=== PATIENT | female | born 1975 | race Caucasian/White ===

== ENCOUNTER → 2020-12-10 | Outpatient (CLI) | payer OTHER ==
[~2020-12-10] MED LIST: ABILIFY5 MG PO; ADULT LOW DOSE81 MG PO; AMLODIPINE BESYL5 MG PO; ATORVASTATIN CA80 MG PO; BASAGLAR K100 UNIT/1 SQ; BIOTIN PO; BUMETANIDE1 MG PO; CLONIDINE HCL0.2 MG PO; CYCLOBENZAPRINE10 MG PO; CYMBALTA60 MG PO; DICLOFENAC; DITROPAN 5 MG TA5 MG PO; DOCUSATE SODIU250 MG PO; ESOMEPRAZOLE MA40 MG PO; EVENING PRIMR1000 MG PO; FENOFIBRATE145 MG PO; FIBER0.52 GM PO; GABAPENTIN800 MG PO; HYDROCODON-ACE1 EAC6 PO; HYDROCODONE-AC1 EACH PO; IBUPROFEN600 MG PO; LISINOPRIL40 MG PO; METOPROLOL SUC100 MG PO; MONTELUKAST SOD10 MG PO; PROAIR DIGIHAL90 MCG INH; SPIRONOLACTONE50 MG PO; STOOL SOFTENER100 MG PO; TOPAMAX50 MG PO; VENTOLIN INH; VISTARIL 25 MG25 MG PO; VITAMIN D21250 MCG PO
[2020-12-10 09:21] LABS: HEMOGLOBIN 11.5 gm/dl (12.3-15.3); RED BLOOD COUNT 3.68 M/UL (4.00-5.10); WHITE BLOOD COUNT 9.1 K/UL (4.5-11.0)
== END ==
LOC: OPSV2 08:12
PROVIDERS: Obstetrics & Gynecology
DX: Z01.812 Encounter for preprocedural laboratory examination (principal); R10.2 Pelvic and perineal pain
CPT/HCPCS: 36415; 80053; 81001; 85025

== ENCOUNTER → 2020-12-15 | Day surgery (SDC) | payer OTHER | END | disposition home or self-care (01) | LOC: OR 07:30 | DX: T85.9XXA Unspecified complication of internal prosthetic device, implant and graft, initial encounter (principal); N94.10 Unspecified dyspareunia; R10.2 Pelvic and perineal pain; I25.10 Atherosclerotic heart disease of native coronary artery without angina pectoris; I10 Essential (primary) hypertension; I25.2 Old myocardial infarction; E11.9 Type 2 diabetes mellitus without complications; E07.9 Disorder of thyroid, unspecified; J44.9 Chronic obstructive pulmonary disease, unspecified; E78.5 Hyperlipidemia, unspecified; E66.01 Morbid (severe) obesity due to excess calories; K21.9 Gastro-esophageal reflux disease without esophagitis; F17.210 Nicotine dependence, cigarettes, uncomplicated; F41.9 Anxiety disorder, unspecified; Z68.41 Body mass index [BMI] 40.0-44.9, adult; Z95.5 Presence of coronary angioplasty implant and graft; Z88.0 Allergy status to penicillin; Z88.5 Allergy status to narcotic agent; Z88.2 Allergy status to sulfonamides; Z79.4 Long term (current) use of insulin; Z79.899 Other long term (current) drug therapy | CPT/HCPCS: 82962; 93005; 94664; C1769; J1100; J1170; J1580; J1885; J2001; J2250; J2405; J2704; J2710; J3010; J7030; J7120 ==

== ENCOUNTER 2021-03-16 13:31 | Inpatient (IN) | payer OTHER ==
[~2021-03-16] VITALS: Ht 170.2 cm; Wt 110.2 kg
[2021-03-17] LABS: HEMOGLOBIN 9.3 gm/dl (12.3-15.3); RED BLOOD COUNT 2.95 M/UL (4.00-5.10)
[2021-03-18 08:14] LABS: VITAMIN D, 25-HYDROXY 15.3 ng/mL (30.0-100.0)
[2021-03-18 08:23] LABS: HEMOGLOBIN 9.3 gm/dl (12.3-15.3); RED BLOOD COUNT 3.02 M/UL (4.00-5.10); WHITE BLOOD COUNT 7.4 K/UL (4.5-11.0)
[2021-03-22 04:40] LABS: HEMOGLOBIN 8.4 gm/dl (12.3-15.3); RED BLOOD COUNT 2.65 M/UL (4.00-5.10); WHITE BLOOD COUNT 10.8 K/UL (4.5-11.0)
[2021-03-23 06:27] LABS: HEMOGLOBIN 8.6 gm/dl (12.3-15.3); RED BLOOD COUNT 2.68 M/UL (4.00-5.10)
[2021-03-23 07:07] LABS: WHITE BLOOD COUNT 7.7 K/UL (4.5-11.0)
[2021-03-23 08:14] LABS: ANTISTREPTOLYSIN O AB 21.6 IU/mL (0.0-200.0); COMPLEMENT C3, SERUM 95 mg/dL (82-167); COMPLEMENT C4, SERUM 12 mg/dL (12-38); HBSAG SCREEN Negative (Negative); HEP B CORE AB, TOT Negative (Negative); HEP C VIRUS AB <0.1 (0.0-0.9)
[2021-03-23 12:14] LABS: ANTI-DSDNA ANTIBODIES <1 IU/mL (0-9)
[2021-03-23 16:14] LABS: A/G RATIO 1.6 (0.7-1.7); ALBUMIN 3.3 g/dL (2.9-4.4); ALPHA-1-GLOBULIN 0.2 g/dL (0.0-0.4); ALPHA-2-GLOBULIN 0.8 g/dL (0.4-1.0); ATYPICAL PANCA <1:20 titer (Neg:<1:20); BETA GLOBULIN 0.7 g/dL (0.7-1.3); CYTOPLASMIC (C-ANCA) <1:20 titer (Neg:<1:20); GAMMA GLOBULIN 0.5 g/dL (0.4-1.8); GLOBULIN, TOTAL 2.2 g/dL (2.2-3.9); IMMUNOGLOBULIN A, QN, SERUM 251 mg/dL (87-352); IMMUNOGLOBULIN G, QN, SERUM 419 mg/dL (586-1602); IMMUNOGLOBULIN M, QN, SERUM 67 mg/dL (26-217); M-SPIKE Not Observed g/dL (Not Observed); PERINUCLEAR (P-ANCA) <1:20 titer (Neg:<1:20); PROTEIN, TOTAL, SERUM 5.5 g/dL (6.0-8.5)
--- NOTE | 2021-03-23 17:49 | NUR ---
PT WENT DOWN TO DIALYSIS NOTED
--- NOTE | 2021-03-24 01:11 | NUR ---
03/23/2021 @ 20:50 - Patient arrived back from dialysis at this time. Dialysis nurse reported that 2L were removed from patient.
[2021-03-24 07:40] LABS: HEMOGLOBIN 7.8 gm/dl (12.3-15.3); RED BLOOD COUNT 2.53 M/UL (4.00-5.10); WHITE BLOOD COUNT 7.1 K/UL (4.5-11.0)
[2021-03-24] MEDS ORDERED: CALCIUM ACETAT667 M1 PO (11:59)
== END 2021-03-24 13:40 | disposition home or self-care (01) | DRG 674 ==
LOC: MED SURG 4 18:09
PROVIDERS: Hospitalist; Internal Medicine; Internal Medicine Nephrology; Surgery; ADMIT Internal Medicine
PROC: 02HV33Z Insertion of Infusion Device into Superior Vena Cava, Percutaneous Approach (ICD-10-PCS; 2021-03-21)
PROC: B5181ZA Fluoroscopy of Superior Vena Cava using Low Osmolar Contrast, Guidance (ICD-10-PCS; 2021-03-21)
PROC: B548ZZA Ultrasonography of Superior Vena Cava, Guidance (ICD-10-PCS; 2021-03-21)
PROC: 0JH63XZ Insertion of Tunneled Vascular Access Device into Chest Subcutaneous Tissue and Fascia, Percutaneous Approach (ICD-10-PCS; principal; 2021-03-21 09:45)
PROC: 5A1D70Z Performance of Urinary Filtration, Intermittent, Less than 6 Hours Per Day (ICD-10-PCS; 2021-03-22)
PROC: 5A1D70Z Performance of Urinary Filtration, Intermittent, Less than 6 Hours Per Day (ICD-10-PCS; 2021-03-23)
PROC: 5A1D70Z Performance of Urinary Filtration, Intermittent, Less than 6 Hours Per Day (ICD-10-PCS; 2021-03-24)
DX: N17.9 Acute kidney failure, unspecified (principal); J96.11 Chronic respiratory failure with hypoxia; E87.2 Acidosis; I50.32 Chronic diastolic (congestive) heart failure; I13.0 Hypertensive heart and chronic kidney disease with heart failure and stage 1 through stage 4 chronic kidney disease, or unspecified chronic kidney disease; Z20.822 Contact with and (suspected) exposure to COVID-19; E87.5 Hyperkalemia; E11.22 Type 2 diabetes mellitus with diabetic chronic kidney disease; J44.9 Chronic obstructive pulmonary disease, unspecified; F41.9 Anxiety disorder, unspecified; F17.210 Nicotine dependence, cigarettes, uncomplicated; E11.40 Type 2 diabetes mellitus with diabetic neuropathy, unspecified; E11.21 Type 2 diabetes mellitus with diabetic nephropathy; D63.1 Anemia in chronic kidney disease; E66.01 Morbid (severe) obesity due to excess calories; R51.9 Headache, unspecified; I25.10 Atherosclerotic heart disease of native coronary artery without angina pectoris; E11.649 Type 2 diabetes mellitus with hypoglycemia without coma; R80.9 Proteinuria, unspecified; E78.5 Hyperlipidemia, unspecified; N18.4 Chronic kidney disease, stage 4 (severe); Z99.2 Dependence on renal dialysis; Z99.81 Dependence on supplemental oxygen; Z79.01 Long term (current) use of anticoagulants; Z79.82 Long term (current) use of aspirin; Z79.4 Long term (current) use of insulin; Z95.5 Presence of coronary angioplasty implant and graft; Z90.49 Acquired absence of other specified parts of digestive tract; Z83.3 Family history of diabetes mellitus; Z80.9 Family history of malignant neoplasm, unspecified; Z87.59 Personal history of other complications of pregnancy, childbirth and the puerperium; Z68.38 Body mass index [BMI] 38.0-38.9, adult; Z88.5 Allergy status to narcotic agent; Z88.2 Allergy status to sulfonamides
CPT/HCPCS: 36415; 77001; 80048; 80053; 81001; 82570; 82607; 82746; 82784; 82962; 83036; 83520; 83540; 83550; 83605; 83735; 83883; 84100; 84155; 84156; 84165; 85007; 85025; 85027; 85045; 86038; 86060; 86141; 86160; 86162; 86225; 86256; 86334; 86704; 86706; 86708; 86803; 87040; 87340; 89050; 90935; 90937; 94640; 94664; 94760; C1750; C1769; J0690; J0780; J1100; J1642; J1650; J2001; J2405; J2704; J2930; J7030; J7040; J7070; J7120; P9047; Q0177; U0002

== ENCOUNTER 2022-02-21 13:47 | Inpatient (IN) | payer OTHER ==
[~2022-02-21] VITALS: Ht 170.2 cm; Wt 98.0 kg
[~2022-02-21 13:47] MED LIST changes: +ARTHRITIS PAIN50 GM TP; +CALCIUM ACETAT667 M1 PO; -DICLOFENAC
[2022-02-21 14:33] LABS: HEMOGLOBIN 10.2 gm/dl (12.3-15.3); RED BLOOD COUNT 3.26 M/UL (4.00-5.10); WHITE BLOOD COUNT 6.7 K/UL (4.5-11.0)
[2022-02-21] MEDS ORDERED: CALCIUM ACETAT667 M2 PO (14:54)
[2022-02-21] MEDS ORDERED: EVENING PRIMR1000 MG PO (15:08)
[2022-02-21] MEDS ORDERED: COLLAGEN PO (15:08)
[2022-02-21] MEDS ORDERED: CALPHRON667 MG PO (15:19)
[2022-02-21] MEDS ORDERED: BUMETANIDE2 MG PO (15:23)
[2022-02-21] MEDS ORDERED: HYDRALAZINE HCL50 MG PO (15:24)
[2022-02-21] MEDS ORDERED: ZAROXOLYN/DIULO5 MG PO (15:25)
[2022-02-21] MEDS ORDERED: ATORVASTATIN CA80 MG PO (15:26)
[2022-02-21] MEDS ORDERED: PHOSLO 667 MG667 MG PO (15:26)
[2022-02-21] MEDS ORDERED: DULOXETINE HCL60 MG PO (15:27)
[2022-02-21] MEDS ORDERED: CARVEDILOL12.5 MG PO (15:27)
[2022-02-21] MEDS ORDERED: PRENATAL VITAM1 EAC8 PO (15:37)
--- NOTE | 2022-02-21 15:39 | NUR ---
PT TAKEN DOWN TO DIALYSIS
[2022-02-21] MEDS ORDERED: HYDROCODON-ACE1 EAC6 PO (15:40)
--- NOTE | 2022-02-21 16:44 | NUR ---
PT BROUGHT BACK TO FLOOR, REF TO FINISH DIALYSIS BECAUSE SHE STATES SHE IS SMOTHERING TO HAVING TO LAY DOWN AND DIALYSIS NURSE STATES SHE IS NOT ALLOWED TO SIT ON SIDE OF BED.
[2022-02-22 07:39] LABS: HEMOGLOBIN 9.7 gm/dl (12.3-15.3); RED BLOOD COUNT 3.07 M/UL (4.00-5.10); WHITE BLOOD COUNT 6.4 K/UL (4.5-11.0)
[2022-02-23 02:27] LABS: HEMOGLOBIN 9.1 gm/dl (12.3-15.3); RED BLOOD COUNT 2.9 M/UL (4.00-5.10)
[2022-02-23] MEDS ORDERED: NICOTINE PATCH1 EAC2 TOP (12:32)
== END 2022-02-23 17:22 | disposition home or self-care (01) | DRG 280 ==
LOC: PROG CARE 13:47
PROVIDERS: Internal Medicine; ADMIT Internal Medicine
PROC: 5A1D70Z Performance of Urinary Filtration, Intermittent, Less than 6 Hours Per Day (ICD-10-PCS; 2022-02-21)
PROC: B24BZZZ Ultrasonography of Heart with Aorta (ICD-10-PCS; principal; 2022-02-22)
DX: I21.4 Non-ST elevation (NSTEMI) myocardial infarction (principal); J18.9 Pneumonia, unspecified organism; N18.6 End stage renal disease; I45.2 Bifascicular block; I13.2 Hypertensive heart and chronic kidney disease with heart failure and with stage 5 chronic kidney disease, or end stage renal disease; J96.11 Chronic respiratory failure with hypoxia; G93.40 Encephalopathy, unspecified; J44.9 Chronic obstructive pulmonary disease, unspecified; E11.22 Type 2 diabetes mellitus with diabetic chronic kidney disease; I25.10 Atherosclerotic heart disease of native coronary artery without angina pectoris; E78.5 Hyperlipidemia, unspecified; F17.210 Nicotine dependence, cigarettes, uncomplicated; E87.5 Hyperkalemia; E83.39 Other disorders of phosphorus metabolism; K21.9 Gastro-esophageal reflux disease without esophagitis; G43.909 Migraine, unspecified, not intractable, without status migrainosus; I08.1 Rheumatic disorders of both mitral and tricuspid valves; E11.40 Type 2 diabetes mellitus with diabetic neuropathy, unspecified; G89.29 Other chronic pain; M54.9 Dorsalgia, unspecified; F41.0 Panic disorder [episodic paroxysmal anxiety]; E87.70 Fluid overload, unspecified; F41.9 Anxiety disorder, unspecified; Z79.01 Long term (current) use of anticoagulants; Z79.82 Long term (current) use of aspirin; Z91.15 Patient's noncompliance with renal dialysis; Z95.5 Presence of coronary angioplasty implant and graft; Z99.81 Dependence on supplemental oxygen; Z79.4 Long term (current) use of insulin; Z90.710 Acquired absence of both cervix and uterus; Z90.49 Acquired absence of other specified parts of digestive tract; Z98.891 History of uterine scar from previous surgery; Z88.5 Allergy status to narcotic agent; Z88.0 Allergy status to penicillin; Z88.2 Allergy status to sulfonamides; Z82.0 Family history of epilepsy and other diseases of the nervous system; Z83.3 Family history of diabetes mellitus; Z82.49 Family history of ischemic heart disease and other diseases of the circulatory system
CPT/HCPCS: ECHO; 71045; 80053; 82550; 82553; 82962; 83036; 83605; 83735; 83880; 84100; 84439; 84443; 84484; 85025; 85027; 85610; 85730; 86140; 93005; 93306; 94640; 94664; 94760; 94762; J1200; J1644; J2250; J3010; Q9965